=== PATIENT | male | born 1960 | race Asian ===

== ENCOUNTER 2018-06-22 06:32 | Emergency (ER) | payer OTHER ==
[2018-06-22] MEDS ORDERED: ASPIRIN 81 MG CHEW CHEW STA (06:43)
[2018-06-22] MEDS ORDERED: HEPARIN* SOD/D5W 25000 U/500ML 500 ML IV ONE (06:43)
[2018-06-22] MEDS ORDERED: STEMI KIT(*) 1 EA ONE (06:44)
[2018-06-22] MEDS ORDERED: TENECTEPLASE 50 MG KIT IVP ONE (06:45)
[2018-06-22] MEDS ORDERED: CLOPIDOGREL BISULFATE 75MG TAB PO ONE (06:45)
--- NOTE | 2018-06-22 06:53 | ER Report ---
History and Physical Time Seen By MD: 06:37 Hx. of Stated Complaint: PATIENT WAS HAVING CHEST PAIN, WENT INTO TORSADES, IN AMBULANCE, SHOCKED ONCE , WENT BACK INTO A RHYTHM, HAVING CHEST PAIN. 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 EMS responded picked him up and was bringing in the ambulance. When he went into porcine's. They shocked him once with 200 J and he responded by returning on a cardiac rhythm, rate of 111. Patient woke up and responding appropriately. Patient had brief CPR for less than 1 minute performed. Hard to being cardioverted. REVIEW OF SYSTEMS: Respiratory: No cough, no dyspnea. Cardiovascular: No chest pain, no palpitations. Gastrointestinal: No vomiting, no abdominal pain. Musculoskeletal: No back pain. Allergies: Coded Allergies: No Known Drug Allergies (Unverified , 06/22/18) Past Medical/Surgical History Type II diabetic on oral agents, hyper lipidemia on cholesterol agent Constitutional Vital Sign - Last 24 Hours 06/22/18 06/22/18 06/22/18 06/22/18 06:37 06:40 06:41 06:42 Temp 97.6 Pulse ??? 93 89 Resp 13 16 B/P (MAP) 120/88 120/88 (99) Pulse Ox 96 92 O2 Delivery Oxy Mask 06/22/18 06/22/18 06/22/18 06/22/18 06:45 06:47 06:47 06:50 Pulse 91 Resp 14 B/P (MAP) 116/83 (94) 116/81 (93) Pulse Ox 98 O2 Flow Rate 4.0 06/22/18 06/22/18 06/22/18 06/22/18 06:55 06:57 06:59 07:00 Pulse 91 88 Resp 22 B/P (MAP) 116/81 (93) 114/85 (95) Pulse Ox 94 06/22/18 06/22/18 06/22/18 06/22/18 07:01 07:03 07:04 07:05 Pulse 90 86 88 Resp 14 16 11 B/P (MAP) 115/80 (92) Pulse Ox 96 95 97 06/22/18 06/22/18 06/22/18 06/22/18 07:07 07:09 07:10 07:11 Pulse 90 89 89 Resp 12 10 8 B/P (MAP) 115/81 (92) Pulse Ox 97 96 96 06/22/18 06/22/18 06/22/18 06/22/18 07:16 07:17 07:18 07:19 Pulse 83 84 81 80 Resp 14 0 11 Pulse Ox 95 97 97 06/22/18 06/22/18 06/22/18 06/22/18 07:20 07:21 07:22 07:23 Pulse ??? 83 90 92 Resp 8 20 16 12 B/P (MAP) 119/76 (90) Pulse Ox 97 96 96 96 06/22/18 06/22/18 06/22/18 06/22/18 07:24 07:25 07:26 07:27 Pulse 86 88 82 81 Resp 11 8 14 8 B/P (MAP) 123/81 (95) Pulse Ox 95 93 92 96 06/22/18 06/22/18 06/22/18 06/22/18 07:28 07:29 07:30 07:32 Pulse 89 ??? 86 Resp 19 9 13 B/P (MAP) 118/77 (91) 109/70 (83) 111/71 (84) Pulse Ox 95 94 95 06/22/18 06/22/18 06/22/18 06/22/18 07:33 07:34 07:35 07:36 Pulse 87 85 88 99 Resp 20 12 10 32 B/P (MAP) 103/70 (81) 117/81 (93) Pulse Ox 95 95 96 96 06/22/18 06/22/18 06/22/18 07:37 07:38 07:39 Pulse 92 87 ??? Resp 17 13 9 Pulse Ox 97 96 95 Physical Exam Vital signs stable, afebrile, pulse ox normal General Appearance: The patient is alert, has no immediate need for airway protection and no current signs of toxicity., Pale, cool, dry skin Eyes: Pupils equal and round no injection. Respiratory: Chest is non tender, lungs are clear to auscultation. No Rales Cardiac: regular rate and rhythm, distant heart sounds Gastrointestinal: Abdomen is soft and non tender, no masses, bowel sounds normal. Musculoskeletal: Neck: Neck is supple and non tender. No JVD Extremities have full range of motion and are non tender. No edema Skin: No rashes or lesions. DIFFERENTIAL DIAGNOSIS: After history and physical exam differential diagnosis was considered for chest pain including but not limited to myocardial ischemia, pericarditis pulmonary embolus, chest wall pain, pleural inflammation and pulmonary infectious causes. Medical Decision Making Data Points Result Diagram: 06/22/18 0644 06/22/18 0644 Laboratory Hematology Test 06/22/18 06:44 06/22/18 06:56 Red Blood Count 6.06 M/uL (4.00-5.60) Mean Corpuscular Volume 84.2 fL (80.0-96.0) Mean Corpuscular Hemoglobin 27.9 pg (26.0-33.0) Mean Corpuscular Hemoglobin Concent 33.1 g/dL (32.0-36.0) Red Cell Distribution Width 14.5 % (11.5-14.5) Mean Platelet Volume 9.0 fL (7.2-11.1) Neutrophils (%) (Auto) 46.5 % (39.4-72.5) Lymphocytes (%) (Auto) 39.0 % (17.6-49.6) Monocytes (%) (Auto) 8.6 % (4.1-12.4) Eosinophils (%) (Auto) 4.7 % (0.4-6.7) Basophils (%) (Auto) 1.2 % (0.3-1.4) Nucleated RBC Relative Count (auto) 0.0 /100WBC Neutrophils # (Auto) 6.4 K/uL (2.0-7.4) Lymphocytes # (Auto) 5.4 K/uL (1.3-3.6) Monocytes # (Auto) 1.2 K/uL (0.3-1.0) Eosinophils # (Auto) 0.7 K/uL (0.0-0.5) Basophils # (Auto) 0.2 K/uL (0.0-0.1) Nucleated RBC Absolute Count (auto) 0.01 K/uL Sodium Level 138 mmol/L (137-145) Potassium Level 2.9 mmol/L (3.5-5.0) Chloride Level 106 mmol/L (98-107) Carbon Dioxide Level 22 mmol/L (22-30) Blood Urea Nitrogen 20 mg/dl (9-21) Creatinine 1.00 mg/dl (0.66-1.25) Glomerular Filtration Rate Calc > 60.0 Random Glucose 188 mg/dl (75-110) Calcium Level 8.0 mg/dl (8.4-10.2) Magnesium Level 2.1 mg/dl (1.7-2.2) Total Bilirubin 0.2 mg/dl (0.2-1.3) Aspartate Amino Transf (AST/SGOT) 44 U/L (0-35) Alanine Aminotransferase (ALT/SGPT) 95 U/L (0-56) Alkaline Phosphatase 77 U/L (0-126) Troponin I < 0.012 ng/ml Total Protein 5.9 g/dl (6.3-8.2) Albumin 3.6 g/dl (3.5-5.0) Whole Blood Glucose 175 mg/DL (75-110) Chemistry Test 06/22/18 06:44 06/22/18 06:56 White Blood Count 13.8 k/uL (4.5-11.0) Red Blood Count 6.06 M/uL (4.00-5.60) Hemoglobin 16.9 g/dL (14.0-18.0) Hematocrit 51.0 % (42.0-52.0) Mean Corpuscular Volume 84.2 fL (80.0-96.0) Mean Corpuscular Hemoglobin 27.9 pg (26.0-33.0) Mean Corpuscular Hemoglobin Concent 33.1 g/dL (32.0-36.0) Red Cell Distribution Width 14.5 % (11.5-14.5) Platelet Count 195 K/uL (150-450) Mean Platelet Volume 9.0 fL (7.2-11.1) Neutrophils (%) (Auto) 46.5 % (39.4-72.5) Lymphocytes (%) (Auto) 39.0 % (17.6-49.6) Monocytes (%) (Auto) 8.6 % (4.1-12.4) Eosinophils (%) (Auto) 4.7 % (0.4-6.7) Basophils (%) (Auto) 1.2 % (0.3-1.4) Nucleated RBC Relative Count (auto) 0.0 /100WBC Neutrophils # (Auto) 6.4 K/uL (2.0-7.4) Lymphocytes # (Auto) 5.4 K/uL (1.3-3.6) Monocytes # (Auto) 1.2 K/uL (0.3-1.0) Eosinophils # (Auto) 0.7 K/uL (0.0-0.5) Basophils # (Auto) 0.2 K/uL (0.0-0.1) Nucleated RBC Absolute Count (auto) 0.01 K/uL Glomerular Filtration Rate Calc > 60.0 Calcium Level 8.0 mg/dl (8.4-10.2) Magnesium Level 2.1 mg/dl (1.7-2.2) Total Bilirubin 0.2 mg/dl (0.2-1.3) Aspartate Amino Transf (AST/SGOT) 44 U/L (0-35) Alanine Aminotransferase (ALT/SGPT) 95 U/L (0-56) Alkaline Phosphatase 77 U/L (0-126) Troponin I < 0.012 ng/ml Total Protein 5.9 g/dl (6.3-8.2) Albumin 3.6 g/dl (3.5-5.0) Whole Blood Glucose 175 mg/DL (75-110) EKG/Imaging EKG Interpretation 12 lead EK 641 Rhythm: normal sinus rhythm Barling: normal QRS: normal ST segments: There is ST elevation in the V1 through V6 with also elevation of 23 and aVF, patient has no old EKGs for compariso Imaging X-ray: Single view portable chest x-ray was obtained. I viewed the images myself on the PACS system. My interpretation of the images is: No infiltrate, no effusion, normal mediastinum. The radiologist interpretation had no clinically significant variation from this interpretation. ED Course/Re-evaluation ED Course Patient was admitted to an examination room. H&P was done. The differential diagnoses was considered. Patient was brought in by EMS after having an episode of poor signs were he was shocked with 200 J. Patient is immediate EKG shows ST elevation in the anterior leads as well as inferior leads. Patient was evaluated for thrombolytic therapy. The checklist was unremarkable for any findings. Patient was administered 4 baby aspirin, Plavix 300 mg, heparin bolus, TNKase and morphine 2 mg. Cardiology consultation was called with Dr. Salvador at [facility] who accepted the patient for transfer. Patient was also given additional magnesium bolus of 2 g IV. He was given 40 mEq of potassium by mouth. Prior to transport by air ambulance. A 3rd EKG was performed which still showed significant ST elevation throughout the V leads extending laterally of approximately 3 mm. A call was placed to Dr. Ordaz to consider a direct admission to the [facility] since he does not is. Be reperfusing at this time. 06/22/2018 6:58:19 am case discussed with Dr. Salvador cardiology at [facility] Decision to Disposition Date: Jun 22, 2018 Decision to Disposition Time: 06:58 Critical Care Time I spent a total of 90 minutes of critical care time in obtaining history, performing a physical exam, bedside monitoring of interventions, collecting and interpreting tests and discussion with consultants but not including time spent performing procedures. Depart Departure Latest Vital Signs Vital Signs Date Time Temp Pulse Resp B/P (MAP) Pulse Ox O2 Delivery O2 Flow Rate FiO2 06/22/18 07:39 ??? 9 95 06/22/18 07:36 117/81 (93) 06/22/18 06:47 4.0 06/22/18 06:40 97.6 Oxy Mask Impression: Primary Impression: STEMI (ST elevation myocardial infarction) Additional Impression: Torsades de pointes Condition: Improved Disposition: XFER TO [facility] Problem Qualifiers Primary Impression: STEMI (ST elevation myocardial infarction) Involved coronary artery: LAD coronary artery Qualified Codes: I21.02 - ST elevation (STEMI) myocardial infarction involving left anterior descending coronary artery OSMANY DO DO Jun 22, 2018 06:53
[2018-06-22 06:56] LABS: PLATELET COUNT, AUTOMATED 195 K/uL (150-450)
[2018-06-22] MEDS ORDERED: ONDANSETRON 4 MG/2 ML VIAL IVP ONE (07:00)
--- NOTE | 2018-06-22 07:04 | RADIOLOGY IMAGING REPORT ---
FACILITY: [facility] - [place] PATIENT NAME: Oj Roque : 1960 MR: [id number] V: [id number] EXAM DATE: ORDERING PHYSICIAN: OSMANY DO TECHNOLOGIST: Location: [facility] Patient: Oj Roque : 1960 Visit/Account:[id number] Date of Sevice: 06/22/2018 CHEST SINGLE AP 06/22/2018 06:45 hours. HISTORY: Chest pain. CODE BLUE. COMPARISON: None. TECHNIQUE: Portable supine AP view of the chest. FINDINGS: Tubes/lines/hardware: There are external chest leads. Pulmonary: Lungs are clear. There is no pneumothorax or pleural effusion. Cardiomediastinal: Cardiac and mediastinal silhouettes are within normal limits. Bones/soft tissues: No acute osseous abnormality. There is slight rightward curvature of the mid thor acic spine. The visible abdomen is normal. IMPRESSION: 1. No acute cardiopulmonary process. Report Dictated By: Sonam Scruggs at 06/22/2018 6:58 AM Report E-Signed By: Sonam Scruggs at 06/22/2018 7:00 AM [id number]
[2018-06-22] MEDS ORDERED: HEPARIN (PORC) 5000 UN/ML VIAL IVP ONE (07:05)
[2018-06-22] MEDS ORDERED: MORPHINE 2 MG/ML SYR IVP ONE (07:05)
[2018-06-22] MEDS ORDERED: MAGNESIUM SUL 50% 1GM/2ML VIAL ONE (07:09)
[2018-06-22] MEDS ORDERED: POTASSIUM CHL 20 MEQ TABCR PO ONE (07:20)
[2018-06-22] MEDS ORDERED: MAGNESIUM SUL* 2 GM/50 ML IVPB 50 ML IVPB ONE (07:20)
[2018-06-22] MEDS ORDERED: NITROGLYCERN* 50 MG/D5W 250 ML 250 ML ONE (07:23)
[2018-06-22 07:36] VITALS: BP 117/81
--- NOTE | 2018-06-22 07:38 | EKG ---
FACILITY: [facility] PATIENT NAME: LM CASTILLO : [id number] MR: [id number] V: [id number] EXAM DATE: ORDERING PHYSICIAN: OSMANY DO TECHNOLOGIST: MARIANELA Leblanc Reason : CP Blood Pressure : / mmHG Vent. Rate : 094 BPM Atrial Rate : 094 BPM P-R Int : 170 ms QRS Dur : 092 ms QT Int : 344 ms P-R-T Axes : 051 038 051 degrees QTc Int : [address] elevation II, III, AVF, V1-6 consistent with acute ischemia ACUTE MS Abnormal ECG No previous ECGs available Confirmed by CLARIBEL ALONSO ([id number]) on 06/22/2018 2:36:43 PM Referred By: Confirmed By:CLARIBEL ALONSO
--- NOTE | 2018-06-22 09:39 | EKG ---
FACILITY: [facility] PATIENT NAME: LM CASTILLO : [id number] MR: [id number] V: [id number] EXAM DATE: ORDERING PHYSICIAN: OSMANY DO TECHNOLOGIST: Test Reason : Blood Pressure : / mmHG Vent. Rate : 083 BPM Atrial Rate : 083 BPM P-R Int : 174 ms QRS Dur : 108 ms QT Int : 374 ms P-R-T Axes : 041 076 035 degrees QTc Int : [address] elevation II, III, AVF, V1-6 consistent with acute ischemia ACUTE [place] Abnormal ECG Confirmed by CLARIBEL ALONSO ([id number]) on 06/22/2018 2:38:19 PM Referred By: Confirmed By:CLARIBEL ALONSO
--- NOTE | 2018-06-22 09:40 | EKG ---
FACILITY: [facility] [place] PATIENT NAME: LM CASTILLO : [id number] MR: [id number] V: [id number] EXAM DATE: ORDERING PHYSICIAN: OSMANY DO TECHNOLOGIST: TBOIN Test Reason : [place] Blood Pressure : / mmHG Vent. Rate : 091 BPM Atrial Rate : 091 BPM P-R Int : 162 ms QRS Dur : 102 ms QT Int : 366 ms P-R-T Axes : 041 075 017 degrees QTc Int : [address] elevation II, III, AVF, V1-6 still present, but less pronounced ACUTE [place] Abnormal ECG Confirmed by CLARIBEL ALONSO ([id number]) on 06/22/2018 2:39:33 PM Referred By: HI Confirmed By:CLARIBEL ALONSO
== END 2018-06-22 07:54 | disposition short-term general hospital (02) ==
LOC: ER 06:42
DX: I21.02 ST elevation (STEMI) myocardial infarction involving left anterior descending coronary artery (principal)
CPT/HCPCS: 36416; 71045; 82948; 83735; 84484; 85025; 93005; 96365; 96368; 96375; 99291; 99292; J1644; J2270; J2405; J3101; J3475; J3490; 82040; 82247; 82310; 82374; 82435; 82565; 82947; 84075; 84132; 84155; 84295; 84450; 84460; 84520

== ENCOUNTER → 2018-06-22 | Outpatient (CLI) | payer SELFPAY | LOC: AMB 06:23 | PROVIDERS: ATTEND Nurse Practitioner | DX: R07.9 Chest pain, unspecified (principal); I47.2 Ventricular tachycardia | CPT/HCPCS: A0425; A0433 ==

== ENCOUNTER → 2018-06-22 | Outpatient (REF) | LOC: AMB 07:22 | PROVIDERS: ATTEND Nurse Practitioner | DX: Z02.9 Encounter for administrative examinations, unspecified (principal) ==